=== PATIENT | male | born 1970 | race Caucasian/White ===

== ENCOUNTER → 2017-02-15 | Outpatient (CLI) | payer BC, MEDICARE ==
[~2017-02-15] MED LIST: ACET-2321 PO; ASPI81TA2 PO; CLIN300C86 PO; INSU100V SQ; INSU100V8 SQ; LISI10TA7 PO; METF500T4 PO
== END ==
LOC: NWCC 07:59
PROVIDERS: ATTEND Internal Medicine
DX: E11.621 Type 2 diabetes mellitus with foot ulcer (principal); L97.512 Non-pressure chronic ulcer of other part of right foot with fat layer exposed; E11.40 Type 2 diabetes mellitus with diabetic neuropathy, unspecified; G60.9 Hereditary and idiopathic neuropathy, unspecified; B36.9 Superficial mycosis, unspecified; Z79.2 Long term (current) use of antibiotics; B96.89 Other specified bacterial agents as the cause of diseases classified elsewhere; I67.9 Cerebrovascular disease, unspecified; E78.00 Pure hypercholesterolemia, unspecified; R06.89 Other abnormalities of breathing; I48.91 Unspecified atrial fibrillation; I49.9 Cardiac arrhythmia, unspecified; J44.9 Chronic obstructive pulmonary disease, unspecified
CPT/HCPCS: 11042; 87070; 87075; 87077; 87181; 87184; 87186; 87205; A6209; G0463

== ENCOUNTER → 2017-02-22 | Outpatient (CLI) | payer MEDICARE ==
[~2017-02-22] MED LIST changes: +CALMOSEPTINE OINTMENT 3.5 G PACKET TOP ONE
== END ==
LOC: NWCC 09:56
PROVIDERS: ATTEND Internal Medicine
DX: E11.621 Type 2 diabetes mellitus with foot ulcer (principal); L97.512 Non-pressure chronic ulcer of other part of right foot with fat layer exposed
CPT/HCPCS: 11042; A6209; A6210; A9270

== ENCOUNTER → 2017-03-08 | Outpatient (CLI) | payer MEDICARE ==
[~2017-03-08] MED LIST changes: +SALINE FLUSH 10ml SYRINGE IVF ONE
== END ==
LOC: NWCC 09:26
PROVIDERS: ATTEND Internal Medicine
DX: E11.621 Type 2 diabetes mellitus with foot ulcer (principal); L97.512 Non-pressure chronic ulcer of other part of right foot with fat layer exposed; Z79.2 Long term (current) use of antibiotics
CPT/HCPCS: 11042; A6209; A9270

== ENCOUNTER → 2017-03-22 | Outpatient (CLI) | payer MEDICARE | LOC: NWCC 09:27 | PROVIDERS: ATTEND Internal Medicine | DX: E11.621 Type 2 diabetes mellitus with foot ulcer (principal); L97.512 Non-pressure chronic ulcer of other part of right foot with fat layer exposed; B96.89 Other specified bacterial agents as the cause of diseases classified elsewhere; Z79.2 Long term (current) use of antibiotics | CPT/HCPCS: 11042; 87070; 87075; 87077; 87147; 87186; 87205; A6209; A6210; A9270 ==

== ENCOUNTER 2017-07-18 12:49 | Inpatient (IN) ==
[2017-07-18] MEDS ORDERED: NS 1,000 ML IV ONE (13:54)
--- NOTE | 2017-07-18 13:54 | Emergency Department Report ---
Wound/Laceration HPI - General Chief Complaint: Wound/Laceration Stated Complaint: big toe bleeding,infection,sent from wound clinic Time Seen by Provider: 07/18/17 13:53 Source: patient Mode of arrival: ambulatory Limitations: no limitations - History of Present Illness HPI narrative: Patient is a 46-year-old male, diabetic with diabetic neuropathy and poor foot hygiene. Patient has been followed in the wound care center for his feet in the past, which she Dr. Beasley today, noted to have increased redness and discharge of the right great toe. Patient was referred to the ER for evaluation possible admission - Related Data Home Medications Medication Instructions Recorded Confirmed Aspirin [[place] Aspirin] 81 mg PO DAILY 07/18/17 07/18/17 Previous Rx's Medication Instructions Recorded Acetaminophen [Tylenol] 325 - 650 mg PO Q5H PRN #60 tab 05/26/16 Acidoph/L.bulg/Bif.b/S.thermop 2 cap PO BIDWM #60 tab 07/22/17 [Bacid Caplet] Clindamycin [Cleocin] 300 mg PO QID #56 cap 07/22/17 Loperamide [Imodium] 2 mg PO PRN PRN #15 cap 07/22/17 Metoclopramide [Reglan] 10 mg PO ACHS #20 tab 07/22/17 Glucophage (metformin) 500 mg 1,000 mg PO BID #360 tab 09/03/17 tablet Levemir (insulin detemir) 100 27 unit SQ .QHS #10 ml 09/03/17 unit/mL Lipitor (atorvastatin) 10 mg tablet 10 mg PO .qhs #90 tab 09/03/17 lisinopril 10 mg tablet 10 mg PO DAILY #90 tab 09/03/17 Humalog KwikPen (insulin lispro) 15 unit SQ .COMPLEX #3 ml 09/06/17 100 unit/mL SQ PEN Levemir FlexTouch (insulin 27 unit SQ .QHS #10 ml 09/06/17 detemir) 100 unit/mL (3 mL) PEN insulin needles See Label Instructions .ROUTE 09/06/17 .COMPLEX #100 each Allergies Allergy/AdvReac Type Severity Reaction Status Date / Time No Known Allergies Allergy Verified 08/15/17 12:58 Review of Systems Constitutional: Denies: fever, chills, weakness Eyes: Denies: eye pain, eye discharge ENT: Denies: throat pain, dental pain Cardiovascular: Denies: chest pain, palpitations Gastrointestinal: Denies: abdominal pain, nausea, vomiting Neurological: Denies: headache, weakness, numbness Psychiatric: Denies: anxiety, depression Endocrine: Denies: fatigue, heat or cold intolerance Past Medical History - Past Medical History Medical history: Reports: CHF, COPD, diabetes, hyperlipidemia, other (obesity) Physical Exam - General Limitations: no limitations General appearance: alert, in no apparent distress - Chest Chest inspection: Present: symmetric chest wall rise. Absent: tenderness - Respiratory Respiratory exam: Present: normal lung sounds bilaterally. Absent: respiratory distress, wheezes, stridor - Cardiovascular Cardiovascular exam: Present: regular rate, normal rhythm, normal heart sounds - Abdominal Exam Abdominal exam: Present: soft, normal bowel sounds. Absent: distention, tenderness - Extremities Exam Extremities exam: Present: full ROM, normal capillary refill, other (patient does have large wound on the right great toe with surrounding erythema and discharge). Absent: tenderness - Neurological Exam Neurological exam: Present: alert, oriented X3 - Psychiatric Psychiatric exam: Present: normal affect, normal mood Course Vital Signs Temperature 98.6 F 07/18/17 12:56 Pulse Rate 74 07/18/17 12:56 Respiratory Rate 18 07/18/17 12:56 Blood Pressure 133/73 07/18/17 12:56 Pulse Oximetry 96 07/18/17 12:56 Temperature 97.3 F 07/22/17 12:26 Pulse Rate 89 07/22/17 12:26 Respiratory Rate 18 07/22/17 12:26 Blood Pressure 144/84 H 07/22/17 12:26 Pulse Oximetry 97 07/22/17 12:26 Wound/Laceration - [facility] Narrative Medical decision making narrative: Discuss case with Dr. De La Paz, will admit to the hospitalist service - Differential Diagnosis Differential diagnosis: Likely: abscess (cellulitis, sepsis, diabetic foot ulcer , osteomyelitis) - Medical Records Attestation: I reviewed the patient's medical records. - Lab Data Attestation: I reviewed the patient's lab results. Result diagrams: 07/22/17 04:19 07/22/17 04:19 Lab Results 07/18/17 07/18/17 07/18/17 Range/Units 14:22 14:22 14:22 WBC 15.1 H (4.5-11.0) T/MM3 RBC 4.84 (4.50-5.90) M/MM3 Hgb 13.0 L (13.5-17.5) GM/DL Hct 39.3 L (41-53) % MCV 81.2 (80-100) UM3 MCH 26.9 (26-34) UUG MCHC 33.1 (31-37) GM/DL RDW Std Deviation 38.2 (36.9-50.2) FL Plt Count 357 (130-400) T/MM3 MPV 8.9 L (9.4-12.4) UM3 Immature Gran % (Auto) Not performed Neut % (Auto) Not performed Lymph % (Auto) Not performed [place] % (Auto) Not performed Eos % (Auto) Not performed Baso % (Auto) Not performed Neut # Not performed Lymph # Not performed [place] # Not performed Eos # Not performed Baso # Not performed Abs Immat Gran (auto) Not performed Neutrophils % (Manual) 82.0 H (33-66) % Lymphocytes % (Manual) 18.0 L (23-45) % Neutrophils # (Manual) 12.4 H (1.8-7.7) T/MM3 Lymphocytes # (Manual) 2.7 (1-4.8) T/MM3 RBC Morph Comment Normal Turbidity < 20 (0-20) Sodium 138 (134-144) MEQ/L Potassium 4.0 (3.6-5) MEQ/L Chloride 100 (98-107) MEQ/L Carbon Dioxide 27 (22-30) MEQ/L Anion Gap 11 (5-15) MEQ/L BUN 10.0 (9-20) MG/DL Creatinine 0.4 L (0.8-1.5) MG/DL GFR Calculation 230 BUN/Creatinine Ratio 25 (6-26) RATIO Glucose 232 H (75-110) MG/DL Calculated Osmolality 272 (261-280) MOSM/KG Calcium 9.2 (8.4-10.2) MG/DL Total Bilirubin 0.80 (0.20-1.30) MG/DL Icterus Index < 2 (0-7) AST 22 (17-59) U/L ALT 35 (21-72) U/L Alkaline Phosphatase 34 L (38-126) U/L Total Protein 8.0 (6.3-8.2) G/DL Albumin 4.1 (3.5-5.0) G/DL Globulin 3.9 H (2.4-3.6) G/DL Albumin/Globulin Ratio 1.1 (1.1-2.2) RATIO Plasma Lactate 1.2 (0.6-2.2) MMOL/L Procalcitonin < 0.05 NG/ML Specimen Hemolysis 47 H (0-25) Disposition Clinical Impression: Cellulitis of great toe, right Disposition: 02 To [facility] [place] Care Condition: Stable - Seen By: physician
[2017-07-18] MEDS ORDERED: CEFEPIME 1 GM in NS 100 ML IV ONE (13:55)
[2017-07-18 16:00] VITALS: BMI 42.7
--- NOTE | 2017-07-18 17:02 | History & Physical Report ---
<Belinda Amaya - Last Filed: 07/18/17 17:44> History of Present Illness Date: 07/18/17 Chief complaint: worsening diabetic foot wound HPI: Patient is 46-year-old male who presents to the emergency room with worsening of his diabetic foot wound. He has been seeing Dr. Harpal Eldridge weekly in the wound clinic. He states he saw her 2 days ago and she started him on Levaquin due to concern for infection. Culture was taken at the previous visit and results are pending. He had a previous culture in April which grew out staph aureus-MRSA and group B strep. He states the wound has continued to worsen with a new blood blister and pus drainage noted this morning. He has had some pain ( usually doesn't have much pain/sensation d/t diabetic neuropathy) and reports chills. He reported this to the wound clinic and they recommended he go to the emergency room today. His white count in ER was 15.1, (up from 11.7 two days ago ) lactate 1.2, procalcitonin< 0.05. He already has an MRI scheduled for today to evaluate the right great toe due to the nonhealing wound. Patient was seen in his hospital room with his son present. He was resting comfortably. He states overall he is feeling fine, but knew he needed to come in because of his worsening toe symptoms. His vital signs in the emergency room were all stable. He is afebrile. He reports his last A1c in February was 8. In addition to routine visits to wound clinic, patient has seen Dr. Odell for this wound in April 2016. Review of Systems Comprehensive ROS: completed and no additional positive findings except those as stated - Cardiovascular Cardiovascular: Present: dyspnea on exertion (chronic for patient ) - Integumentary/Breasts Integumentary: Present: as per HPI PFSH Past Medical History Chronic respiratory insufficiency-wears O2 continuously at 3 L per nasal cannula Type 2 diabetes Diabetic neuropathy Hypercholesterolemia Episodic atrial fibrillation Obesity Hypoventilation syndrome Cerebrovascular disease-patient reports he had 4 "small strokes" when he was having issues with atrial fibrillation History of treatment for tuberculosis per patient-2013 Surgical History: Pilonidal cystectomy. Left carpal tunnel release. Facial reconstruction with plastic plating - facial fractures related to football injury. Heart cath 06/06-normal (doesn't follow with cardiology) Family History: Father- age 56. Malignant melanoma with metastases to brain, diabetes, renal failure Maternal and paternal grandfathers-diabetes Mother-emphysema - Social History Smoking status: Never smoker Substance use type: does not use Alcohol intake frequency: a few times a month (1-2 beers) Housing: house Household members: spouse, children (son ) Current occupational status: disabled (2013-Due To Hypoxia) Social history: PCP-[facility]RIST[facility] Tom/Dr. Garg Medications Home Medications Medication Instructions Recorded Confirmed Type Metformin HCl 1,000 mg PO BIDWM #0 tab 05/23/16 07/18/17 History Insulin Aspart [Novolog Flexpen] 15 unit SQ TIDWM 07/18/17 07/18/17 History Lisinopril 10 mg PO DAILY 07/18/17 07/18/17 History levoFLOXacin [Levofloxacin] 750 mg PO DAILY 07/18/17 07/18/17 History Allergies Allergy/AdvReac Type Severity Reaction Status Date / Time No Known Allergies Allergy Verified 07/18/17 13:55 Exam Vital Signs: Temperature 96.7 F L 07/18/17 15:48 Pulse Rate 82 07/18/17 15:48 Respiratory Rate 18 07/18/17 15:48 Blood Pressure 131/78 07/18/17 15:48 Pulse Oximetry 98 07/18/17 15:48 Oxygen Delivery Method Nasal Cannula Oxygen Flow Rate 3 Height/Weight/BMI: Height 1.65 m Weight 116.5 kg Body Mass Index 42.7 - Constitutional Present: no acute distress, well nourished, well developed, morbidly obese - Routine HEENT Exam Head: Present: normocephalic, atraumatic Eye: Present: EOMI, PERRL ENT: Present: mucous membranes moist, oropharynx clear - Routine Neck Exam Present: supple, full ROM - Routine Respiratory Exam Present: CTA bilaterally. Absent: wheezes - Routine Cardiovascular Exam Present: RRR, S1, S2. Absent: murmur - Routine Abdominal Exam Present: soft, normoactive bowel sounds, non distended. Absent: tenderness - Routine Extremities Exam Present: no edema ( 1+), normal capillary refill Comments: Pedal pulses palpable bilaterally - Routine Skin Exam Present: dry, warm, wounds (ulceration on plantar surface of right great toe. Some Callus formation. Erythema and swelling of the toe. New open area on the dorsal surface of the great toe, approximately a centimeter in diameter. Mild bleeding at this time. Patient has no pain with palpation due to his neuropathy. ) - Routine Neurological Exam Present: alert, oriented X3, moving all extremities, normal tone Cranial nerves III through XII grossly intact - Routine Psychiatric Exam Present: normal affect, normal thought process Comments: No feeling to soft touch in the toes, limited feeling in the feet. Results - Labs CBC & Chem 7: 07/18/17 14:22 07/18/17 14:22 Labs: Laboratory Results - last 24 hr 07/18/17 07/18/17 07/18/17 14:22 14:22 14:22 WBC 15.1 H RBC 4.84 Hgb 13.0 L Hct 39.3 L MCV 81.2 MCH 26.9 MCHC 33.1 RDW Std Deviation 38.2 Plt Count 357 MPV 8.9 L Immature Gran % (Auto) Not performed Neut % (Auto) Not performed Lymph % (Auto) Not performed [place] % (Auto) Not performed Eos % (Auto) Not performed Baso % (Auto) Not performed Neut # Not performed Lymph # Not performed [place] # Not performed Eos # Not performed Baso # Not performed Abs Immat Gran (auto) Not performed Neutrophils % (Manual) 82.0 H Lymphocytes % (Manual) 18.0 L Neutrophils # (Manual) 12.4 H Lymphocytes # (Manual) 2.7 RBC Morph Comment Normal Turbidity < 20 Sodium 138 Potassium 4.0 Chloride 100 Carbon Dioxide 27 Anion Gap 11 BUN 10.0 Creatinine 0.4 L GFR Calculation 230 BUN/Creatinine Ratio 25 Glucose 232 H Calculated Osmolality 272 Calcium 9.2 Total Bilirubin 0.80 Icterus Index < 2 AST 22 ALT 35 Alkaline Phosphatase 34 L Total Protein 8.0 Albumin 4.1 Globulin 3.9 H Albumin/Globulin Ratio 1.1 Plasma Lactate 1.2 Procalcitonin < 0.05 Specimen Hemolysis 47 H Assessment and Plan Assessment and Plan: Impression: Chronic diabetic toe ulcer with cellulitis/abscess-right great toe. Rule out osteomyelitis Chronic respiratory insufficiency-wears O2 continuously at 3 L per nasal cannula Type 2 diabetes Diabetic neuropathy Hypercholesterolemia Episodic atrial fibrillation Obesity Hypoventilation syndrome Cerebrovascular disease-patient reports he had 4 "small strokes" when he was having issues with atrial fibrillation History of treatment for tuberculosis per patient-2013 Plan: Admit patient to inpatient hospital care under the care of the hospitalist team , attending Dr. De La Paz. Expect patient to have greater than 2 overnight stay based on his failed outpatient treatment of infected, chronic diabetic foot wound. Start antibiotics for coverage of infected diabetic foot ulcer. (Culture of wound taken 2 days ago is pending.) Pharmacy consult to manage vancomycin dosing. Zosyn 3.375 g every 6 hours IV. MRI of foot as already scheduled Continue home insulin and metformin for diabetes. Accu-Cheks 4 times a day. Carb controlled diet. Telemetry given his history of episodic atrial fibrillation. Lovenox will be initiated for VTE prophylaxis Continue 3 L O2 per nasal cannula as is this patient's home oxygen requirement. BiPAP with 3 L O2 overnight Hemoglobin A1c, TSH, CRP and urinalysis for laboratory completeness given his diabetes diagnosis Patient is a full code. Following patient's discharge, his care will return to his PCP, Mikaela Shaikh APRN Sepsis Assessment - Evaluation Sepsis screening result: Sepsis Risk Hospital Course Summary Disclaimer: The visit summary below is not to be considered part of the above Progress Note. <Camille De La Paz - Last Filed: 07/18/17 18:52> History of Present Illness Date: 07/18/17 Exam Vital Signs: Temperature 96.7 F L 07/18/17 15:48 Pulse Rate 82 07/18/17 15:48 Respiratory Rate 18 07/18/17 15:48 Blood Pressure 131/78 07/18/17 15:48 Pulse Oximetry 98 07/18/17 15:48 Results - Labs CBC & Chem 7: 07/18/17 14:22 07/18/17 14:22 Assessment and Plan DVT Prophylaxis: SCD's Resuscitation Status: Full Code Assessment and Plan: I have independently evaluated and examined this patient. I reviewed the chart, the patient's history, and the TERMINAL WORKER/PA's documented findings as above. We discussed and formulated the assessment and plan as above with additions as below: Mr. Ruiz reports a history of a ulcer on the plantar surface of his right great toe since approximately February of this year. He previously had an ulcer in this area which had healed. Since February has been managed at the wound care clinic under the care Dr. Eldridge. Couple of days ago patient developed increasing discoloration and swelling of the great toe with fevers. Levaquin was started 2 days ago at which time sedimentation rate was 41, CRP 44.3, and white count 11.7. Fevers persist with development of a necrotic area on the dorsal surface of the right great toe which was opened in the emergency room and drained of approximately 1 mL of pus. Gram stain is pending as is culture. Recent cultures are as previously noted with staph aureus and group B strep cultured 07/16. The patient is admitted for further management due to worsening of symptoms and development of localized abscess, failure of outpatient therapy , and high likelihood of osteomyelitis. It is anticipated that he will require greater than 2 days of IV antibiotics and possible surgical intervention. On examination the patient is alert and cooperative. Respirations are nonlabored and he was on room air at the time of my assessment. Lungs were clear. Cardiac rhythm regular Right foot demonstrated erythema involving all 5 digits and extending to the MTP joints; the right great toe was edematous and there is a 1 cm punched out ulcer on the plantar surface and a superficial surgically induced ulceration on the dorsal surface following debridement in the ER. The distal foot/toes are warm to palpation but nontender due to the patient's neuropathy and lack of sensation distally. White count is increased 15.1. MRI pending. Antibiotics converted to vancomycin with Zosyn for standard diabetic foot coverage pending further culture data. It is noted patient is previously cultured MRSA from the right great toe in April of this year. He additionally has cultured anaerobic gram-negative rods hence Zosyn will be utilized in place of Levaquin. High risk for further complications due to recurrent ulceration of the right great toe. Discussed with Dr. Espinosa, outpatient records reviewed, prior microbiology results reviewed, laboratory data reviewed. Hospital Course Summary Disclaimer: The visit summary below is not to be considered part of the above Progress Note.
[2017-07-18] MEDS ORDERED: ACETAMINOPHEN 325 MG TABLET PO PRN (17:41)
[2017-07-18] MEDS ORDERED: GADOBUTROL 10mMol/10ml INJECTION IVP ONE (18:11)
[2017-07-18] MEDS ORDERED: SALINE FLUSH 10ml SYRINGE ONE (18:12)
--- NOTE | 2017-07-18 18:24 | Pharmacy Consult-Antibiotics ---
Pharmacy Consult-Vancomycin - Laboratory Information WBC 15.1 T/MM3 (4.5-11.0) H 07/18/17 14:22 BUN 10.0 MG/DL (9-20) 07/18/17 14:22 Creatinine 0.4 MG/DL (0.8-1.5) L 07/18/17 14:22 Procalcitonin < 0.05 NG/ML 07/18/17 14:22 46yo M admitted with sepsis secondary to 2 Rt Great Toe diabetic wound, possible osteomyelitis Starting Vanco + Zosyn Will start Vancomycin @ 1500mg IV q8hrs. Target trough range = 15-20 mcg/ml Thank you
[2017-07-18] MEDS: PIPERACILLIN/TAZOBACTAM 3.375 GM in NS 100 ML IV SCH (18:55)
[2017-07-18] MEDS ORDERED: NS FLUSH BAG 500ml IV PRN (18:56)
[2017-07-18] MEDS: ENOXAPARIN 30 MG/0.3 ML INJECTION SQ SCH (18:56)
[2017-07-18] MEDS: INSULIN ASPART 100unit/ml INJECTION SQ SCH (20:09)
[2017-07-18] MEDS: INSULIN DETEMIR 100unit/ml INJECTION SQ SCH (22:08)
[2017-07-18] MEDS: ATORVASTATIN 10 MG TABLET PO SCH (22:36)
[2017-07-19] MEDS: PIPERACILLIN/TAZOBACTAM 3.375 GM in NS 100 ML IV SCH ×4 (02:51→20:05)
[2017-07-19] MEDS ORDERED: NS 500 ML IV ONE (03:18)
[2017-07-19] MEDS: INSULIN ASPART 100unit/ml INJECTION SQ SCH ×3 (08:41→17:37)
[2017-07-19] MEDS: METFORMIN 500 MG TABLET PO SCH ×2 (08:42→17:33)
[2017-07-19] MEDS: LISINOPRIL 10 MG TABLET PO SCH (08:42)
[2017-07-19] MEDS: ENOXAPARIN 30 MG/0.3 ML INJECTION SQ SCH (08:42)
[2017-07-19] MEDS: ASPIRIN *EC* 81 MG TABLET PO SCH (08:43)
--- NOTE | 2017-07-19 08:56 | Magnetic Resonance Report ---
Indication: diabetic foot wound PROCEDURE: MR foot RT wo/w con: Encounter: Initial Comparison: Foot MRI dated June 29, 2016 Technique: Multiplanar multisequence MR imaging of the right foot was performed with and without contrast. Contrast: 10 mL Gadavist Findings: There is continued diffuse T1 hypointensity and T2 hyperintensity throughout the great toe distal phalanx. There is worsening T2 hyperintensity and enhancement within the great toe proximal phalanx compared to the prior study. There is degenerative edema within the navicular bone which is slightly worsened from the prior study. The remaining bone marrow signal intensity is normal. Postcontrast images show a rim-enhancing fluid collection probably representing abscess facial to the dorsal aspect of the great toe interphalangeal joint. This is best appreciated on coronal T1 postcontrast image #11 measuring 2.6 x 2 cm in size. This is approximately 0.4 cm in thickness. There is edema within the intrinsic foot musculature, a common finding in diabetics. The foot flexor and extensor tendons are grossly intact. Impression: Continued osteomyelitis of the great toe with complete involvement of the distal phalanx and worsening involvement of the proximal phalanx. Dorsal subcutaneous abscess centered around the interphalangeal joint of the toe measuring 2.6 x 2 cm. .
--- NOTE | 2017-07-19 11:49 | Progress Note ---
<Mone Hernandez V - Last Filed: 07/19/17 11:43> Subjective: Trista is seen today in follow up. He is resting in bed without complaints. Reports that he has very minimal sensation/pain to the right great toe area. Dressing is intact with some minimal drainage. He remains afebrile, vital signs currently are normal. He did have some mild orthostatic stasis overnight systolic BP 90's however, this has resolved this morning. He is chronically on his 3 liters of oxygen by nasal cannula. Objective Vital signs: Temperature 99.4 F 07/19/17 08:24 Pulse Rate 88 07/19/17 08:24 Respiratory Rate 16 07/19/17 08:24 Blood Pressure 131/88 07/19/17 08:24 Pulse Oximetry 99 07/19/17 08:24 Oxygen Delivery Method Nasal Cannula Oxygen Flow Rate 3 Height/Weight/BMI: Weight 119.7 kg - Constitutional Present: well nourished, well developed - Routine HEENT Exam Eye: Present: EOMI ENT: Present: mucous membranes moist, dentition normal - Routine Respiratory Exam Present: CTA bilaterally. Absent: wheezes - Routine Cardiovascular Exam Present: RRR. Absent: murmur - Routine Abdominal Exam Present: soft, normoactive bowel sounds, non distended. Absent: tenderness - Routine Extremities Exam Present: normal capillary refill - Routine Skin Exam Present: dry, warm - Routine Neurological Exam Present: alert, oriented X3, CN II-XII intact - Routine Lymphatic Exam Lymphatic: Absent: adenopathy - Routine Psychiatric Exam Present: normal affect Results - Labs CBC & Chem 7: 07/19/17 04:01 07/19/17 04:01 Assessment and Plan (1) Cellulitis of great toe, right Current visit: Yes Status: Acute (2) Osteomyelitis of toe of right foot Current visit: Yes Status: Acute Assessment and Plan: Impression Osteomyelitis of right great toe Uncontrolled diabetes Chronic oxygen dependence Diabetic neuropathy Episodic atrial fibrillation Hypercholesterolemia Hypoventilation syndrome Plan Unfortunately, MRI of the right foot does reveal osteomyelitis of the right great toe with complete involvement of the distal phalanx and worsening involvement in the proximal. There is questionable about of dorsal subcutaneous abscess. Will contact Dr Diaz. Will place consultation with Dr Odell for evaluation and recommendations. Patient continues to be on IV vancomycin and Zosyn for antimicrobial coverage. Preliminary blood cultures remain negative. Superficial wound culture reveals gram-positive cocci. Leukocytosis improved, WBC 11.6 today. Will given one time dose of Potassium for oral supplementation given mild hypokalemia Hemoglobin A1c on admission was found to be significantly elevated at 11.5. Currently on metformin 1000 twice a day, Levemir 27 units at at bedtime along with NovoLog 15 units with meals 3 times a day. Continue to monitor blood pressure in light of reported hypotension overnight suspect this may positional. Continues on Lisinopril 10 mg daily. Continue Lovenox subcutaneous daily for DVT prophylaxis Sepsis Assessment - Evaluation Sepsis screening result: No Definite Risk Hospital Course Summary Disclaimer: The visit summary below is not to be considered part of the above Progress Note. Hospital Course: 07/19/17 Plan Unfortunately, MRI of the right foot does reveal osteomyelitis of the right great toe with complete involvement of the distal phalanx and worsening involvement in the proximal. There is questionable about of dorsal subcutaneous abscess. Will contact Dr Diaz. Will place consultation with Dr Odell for evaluation and recommendations. Patient continues to be on IV vancomycin and Zosyn for antimicrobial coverage. Preliminary blood cultures remain negative. Superficial wound culture reveals gram-positive cocci. Leukocytosis improved, WBC 11.6 today. Will given one time dose of Potassium for oral supplementation given mild hypokalemia Hemoglobin A1c on admission was found to be significantly elevated at 11.5. Currently on metformin 1000 twice a day, Levemir 27 units at at bedtime along with NovoLog 15 units with meals 3 times a day. Continue to monitor blood pressure in light of reported hypotension overnight suspect this may positional. Continues on Lisinopril 10 mg daily. Continue Lovenox subcutaneous daily for DVT prophylaxis <Camille De La Paz - Last Filed: 07/19/17 19:55> Objective Vital signs: Temperature 98.1 F 07/19/17 16:00 Pulse Rate 105 H 07/19/17 16:00 Respiratory Rate 20 07/19/17 16:00 Blood Pressure 146/85 H 07/19/17 16:00 Pulse Oximetry 99 07/19/17 16:00 Oxygen Delivery Method Nasal Cannula Oxygen Flow Rate 3 Height/Weight/BMI: Weight 119.7 kg Results - Labs CBC & Chem 7: 07/19/17 04:01 07/19/17 04:01 Assessment and Plan (1) Cellulitis of great toe, right Current visit: Yes Status: Acute (2) Osteomyelitis of toe of right foot Current visit: Yes Status: Acute Assessment and Plan: I have independently evaluated and examined this patient. I reviewed the chart, the patient's history, and the [employer]/PA's documented findings as above. We discussed and formulated the assessment and plan as above with additions as below: Trista reported no pain in his foot when seen earlier today. He had no fever overnight. Results of MRI were reviewed with him and he is aware that case is being reviewed with both orthopedic surgery and infectious disease (although Dr. Diaz is unavailable to see him in consultation at the hospital today). He described chronic exertional dyspnea unchanged from baseline requiring 3 L supplemental oxygen at all times. Right foot is dressed time my evaluation, the dressing is dry currently-not removed and will defer direct exam to ortho. NAD, alert, respirations nonlabored, abdomen benign Leukocytosis improving on Zosyn/vancomycin. CRP 81.4-has nearly doubled in the last 3 days. Culture pending but Gram stain with gram-positive's in chains, gram variable rods. Wound culture from 07/16 with group B strep and MRSA. MRI reviewed by myself-osteomyelitis right great toe with 2 cm abscess on the dorsal surface overlying the interphalangeal joint of the great toe. Discussed with both Dr. Odell and Dr. Diaz-continue current antibiotics pending further culture information. Anticipate probable amputation or debridement and bone biopsy at a minimum tomorrow. Potassium borderline-oral supplementation tonight. Hospital Course Summary Disclaimer: The visit summary below is not to be considered part of the above Progress Note.
--- NOTE | 2017-07-19 13:25 | Orthopedic Consult Note ---
Orthopedic Consultation HPI - Consultation Info Consult Date: 07/19/17 Attending Physician: Camille De La Paz MD Consult Reason: other - History of Present Illness Mr. Ruiz is a kind 46-year-old gentleman who I know from previous diabetic foot ulcerations on the same right great toe about a year ago. At that time and that healing up his wounds but unfortunately he notices it opened up again in February and has been treated at the wound center periodically since February. They were planning on possibly getting him into the HBO chamber next week when it and it was noted he had a large expression of pus from a superior ulcer over the great toe and he was admitted yesterday to the hospitalist service. He denies any real pain to the neuropathy. Review of Systems - Constitutional Constitutional: Absent: chills, fever(s), night sweats - Cardiovascular Cardiovascular: Absent: chest pain, palpitations - Respiratory Respiratory: Absent: cough, dyspnea - Gastrointestinal Gastrointestinal: Absent: abdominal pain, nausea, vomiting - Musculoskeletal Musculoskeletal: Present: as per HPI - Integumentary/Breasts Integumentary: Present: rash - Neurological Neurological: Present: numbness. Absent: tingling [facility] Surgical History: Pilonidal cystectomy. Left carpal tunnel release. Facial reconstruction with plastic plating - facial fractures related to football injury. Heart cath 06/06-normal (doesn't follow with cardiology) - Social History Smoking status: Never smoker Medications Home Medications Medication Instructions Recorded Confirmed Type Metformin HCl 1,000 mg PO BIDWM #0 tab 05/23/16 07/18/17 History Aspirin [[place] Aspirin] 81 mg PO DAILY 07/18/17 07/18/17 History Atorvastatin [Lipitor] 1 tab PO HS 07/18/17 07/18/17 History Insulin Aspart [Novolog Flexpen] 15 unit SQ TIDWM 07/18/17 07/18/17 History Levemir 27 units SUB-Q HS 07/18/17 07/18/17 History Lisinopril 10 mg PO DAILY 07/18/17 07/18/17 History levoFLOXacin [Levofloxacin] 750 mg PO DAILY 07/18/17 07/18/17 History Allergies Allergy/AdvReac Type Severity Reaction Status Date / Time No Known Allergies Allergy Verified 07/18/17 13:55 Orthopedic Exam Vital signs: Temperature 99.4 F 07/19/17 08:24 Pulse Rate 88 07/19/17 08:24 Respiratory Rate 16 07/19/17 08:24 Blood Pressure 131/88 07/19/17 08:24 Pulse Oximetry 99 07/19/17 08:24 Oxygen Delivery Method Nasal Cannula Oxygen Flow Rate 3 - Constitutional General Appearance: Present: no acute distress, well developed, well nourished - Respiratory Exam Present: other (nasal cannula in place) - Cardiovascular Exam Capillary Refill: < 2-3 Seconds - Extremities Exam Comments: Right great toe with large ulcer both dorsally and plantarly at the level of the IP joint. The great toe is red and swollen. - Integumentary Exam Present: pink, warm, dry - Lymphatic Lymphatic: Absent: adenopathy - Neurological Exam Present: intact to light touch, no deficits - Psychiatric Exam Present: alert, normal affect - Labs Result Diagrams: 07/19/17 04:01 07/19/17 04:01 Abnormal lab results 07/19/17 07/19/17 Range/Units 04:01 04:01 WBC 11.6 H (4.5-11.0) T/MM3 RBC 4.36 L (4.50-5.90) M/MM3 Hgb 11.8 L (13.5-17.5) GM/DL Hct 36.2 L (41-53) % MPV 9.0 L (9.4-12.4) UM3 Neut % (Auto) 68.9 H (33-66) % Lymph % (Auto) 18.4 L (23-45) % Bremer % (Auto) 9.7 H (0-9.0) % Neut # 8.0 H (1.8-7.7) T/MM3 Bremer # 1.1 H (0-0.8) T/MM3 Abs Immat Gran (auto) 0.04 H (0.00-0.03) T/MM3 Potassium 3.5 L (3.6-5) MEQ/L Creatinine 0.6 L D (0.8-1.5) MG/DL Glucose 151 H (75-110) MG/DL Hemoglobin A1c 11.5 H (6.1-7.9) % C-Reactive Protein 81.4 H (0-9) MG/L H & H 07/19/17 Range/Units 04:01 Hgb 11.8 L (13.5-17.5) GM/DL Hct 36.2 L (41-53) % Impression and Recommendation (1) Osteomyelitis of toe of right foot Current visit: Yes Status: Acute I reviewed the diagnosis as well as MRI findings with him. Because of the extensiveness of the osteomyelitis and large abscess in the toe and his current open ulcerations both superiorly and plantarly to the great toe I do not feel there is a good chance of saving this toe. Recommendation would be for amputation at the MTP joint of the great toe. I discussed being as aggressive as possible trying to save the toe which would likely require a bone biopsy several weeks of IV antibiotics and daily hyperbaric oxygen chamber treatment. This aggressive treatment would not guarantee that we could save the toe. He would like to think about his options and talk to his . I will go ahead and make him nothing by mouth at midnight and plan on surgery tomorrow which would be an amputation versus a debridement with bone biopsy. Hospital Course Summary Disclaimer: The visit summary below is not to be considered part of the above Progress Note. Hospital Course: 07/19/17 Plan Unfortunately, MRI of the right foot does reveal osteomyelitis of the right great toe with complete involvement of the distal phalanx and worsening involvement in the proximal. There is questionable about of dorsal subcutaneous abscess. Will contact Dr Diaz. Will place consultation with Dr Odell for evaluation and recommendations. Patient continues to be on IV vancomycin and Zosyn for antimicrobial coverage. Preliminary blood cultures remain negative. Superficial wound culture reveals gram-positive cocci. Leukocytosis improved, WBC 11.6 today. Will given one time dose of Potassium for oral supplementation given mild hypokalemia Hemoglobin A1c on admission was found to be significantly elevated at 11.5. Currently on metformin 1000 twice a day, Levemir 27 units at at bedtime along with NovoLog 15 units with meals 3 times a day. Continue to monitor blood pressure in light of reported hypotension overnight suspect this may positional. Continues on Lisinopril 10 mg daily. Continue Lovenox subcutaneous daily for DVT prophylaxis
[2017-07-19] MEDS ORDERED: PNEUMOCOCCAL 13 VACCINE 0.5ml INJECTION IM ONE (14:22)
[2017-07-19] MEDS ORDERED: PNEUMOCOCCAL VAC ADMIN CHARGE INJ ONE (17:33)
[2017-07-19] MEDS: ONDANSETRON 4 MG/2 ML INJECTION IVP PRN (18:45)
[2017-07-19] MEDS: INSULIN DETEMIR 100unit/ml INJECTION SQ SCH (20:47)
[2017-07-19] MEDS: ATORVASTATIN 10 MG TABLET PO SCH (20:48)
[2017-07-20] MEDS: PIPERACILLIN/TAZOBACTAM 3.375 GM in NS 100 ML IV SCH ×3 (02:42→17:47)
[2017-07-20] MEDS: SALINE FLUSH 10ml SYRINGE IVF PRN (02:43)
[2017-07-20] MEDS: ONDANSETRON 4 MG/2 ML INJECTION IVP PRN ×3 (03:27→17:24)
[2017-07-20] MEDS ORDERED: SCOPOLAMINE 1.5 MG PATCH TD SCH (08:15)
[2017-07-20] MEDS ORDERED: NS 1,000 ML IV SCH (09:00)
--- NOTE | 2017-07-20 09:05 | Anesthesia Preoperative Report ---
Anesthesia Preoperative Record - Date and Time Date: 07/20/17 Preoperative Diagnosis: Diabetic Foot Wound Proposed Procedure: right great toe amputation NPO Since Date: 07/19/17 NPO Since Time: 23:00 Allergies/Adverse Reactions: Allergies Allergy/AdvReac Type Severity Reaction Status Date / Time No Known Allergies Allergy Verified 07/18/17 13:55 - Vital Signs Vital Signs: Temperature 98.4 F 07/20/17 06:35 Pulse Rate 90 07/20/17 06:35 Respiratory Rate 16 07/20/17 06:35 Blood Pressure 149/78 H 07/20/17 06:35 Pulse Oximetry 96 07/20/17 06:35 Oxygen Delivery Method Nasal Cannula Oxygen Flow Rate 3 Height and Weight: Weight 119.7 kg - Medications Inpatient Medications: Current Medications Acetaminophen (Tylenol) 325 - 650 mg PO Q5H PRN PRN Reason: Discomfort Aspirin (Ecotrin) 81 mg PO DAILY [facility] Last Admin: 07/19/17 08:43 Dose: 81 mg Atorvastatin Calcium (Lipitor) 10 mg PO [facility] Last Admin: 07/19/17 20:48 Dose: 10 mg Enoxaparin Sodium (Lovenox) 30 mg SQ DAILY [facility] Last Admin: 07/19/17 08:42 Dose: 30 mg Piperacillin Sod/Tazobactam (Sod 3.375 gm/ Sodium Chloride) 100 mls @ 200 mls/ hr IV Q6HR [facility] Last Infusion: 07/20/17 03:32 Dose: Infused Vancomycin HCl 1,500 mg/ (Sodium Chloride) 500 mls @ 250 mls/hr IV 0700,1300, 2100 [facility] Last Admin: 07/20/17 06:09 Dose: 250 mls/hr Sodium Chloride (Normal Saline) 1,000 mls @ 50 mls/hr IV .Q20H [facility] Last Admin: 07/20/17 08:57 Dose: 50 mls/hr Insulin Aspart (Novolog) 15 unit SQ TIDWM [facility] Last Admin: 07/19/17 17:37 Dose: Not Given Insulin Detemir (Levemir) 27 unit SQ [facility] Last Admin: 07/19/17 20:47 Dose: 27 unit Lisinopril (Prinivil) 10 mg PO DAILY [facility] Last Admin: 07/19/17 08:42 Dose: 10 mg Metformin HCl (Glucophage) 1,000 mg PO BIDWM [facility] Last Admin: 07/19/17 17:33 Dose: 1,000 mg Ondansetron HCl (Zofran) 4 mg IVP Q6H PRN PRN Reason: Nausea &/or vomiting Last Admin: 07/20/17 03:27 Dose: 4 mg Scopolamine (Transderm-Scop Patch Removal) 1 removal TD O ONE Stop: 07/23/17 08:13 Sodium Chloride (Iv Flush) 10 - 80 ml IVF PRN PRN PRN Reason: Flushing Last Admin: 07/20/17 02:43 Dose: 20 ml Sodium Chloride (Normal Saline) 500 ml IV PRN PRN Home Medications: Home Medications Medication Instructions Recorded Confirmed Type Metformin HCl 1,000 mg PO BIDWM #0 tab 05/23/16 07/18/17 History Aspirin [[place] Aspirin] 81 mg PO DAILY 07/18/17 07/18/17 History Atorvastatin [Lipitor] 1 tab PO HS 07/18/17 07/18/17 History Insulin Aspart [Novolog Flexpen] 15 unit SQ TIDWM 07/18/17 07/18/17 History Levemir 27 units SUB-Q HS 07/18/17 07/18/17 History Lisinopril 10 mg PO DAILY 07/18/17 07/18/17 History levoFLOXacin [Levofloxacin] 750 mg PO DAILY 07/18/17 07/18/17 History Is Patient on Beta Familia?: No - Medical History Respiratory: Reports: Sleep Apnea (CPAP), Other (home O2 (2-3L at all times), lung injury with prolonged chemical exposure) Cardiovascular: Reports: Arrhythmia (Afib hx- ablation in 2009, no issues since) DENIES: Coronary Artery Disease (heart cath negative 2011), Hypertension ( lisinopril for renal protection), Myocardial Infarction Gastrointestional: Reports: Morbid Obesity DENIES: Gastroesophageal Reflux Disease Renal/Endocrine: Reports: Diabetes Mellitus Type 2 Other History: DENIES: Anesthesia Reactions (nausea with PO pain meds) - Surgical History HEENT Surgeries: Reports: Tonsillectomy Respiratory Surgery/Treatments: Reports: BiPAP Use, Oxygen Administration (2013) Anesthesia Reactions: None Hx Family Anesthesia Reaction: No History of Motion Sickness: No - Social History Smoking Status: Never smoker Hx Chewing Tobacco Use: No Second Hand Exposure: No Substance Use Type: does not use - Pertinent Findings Laboratory: CBC and BMP 08/25/17 04:09 07/20/17 04:10 BMP 07/20/17 04:10 Sodium 141 Potassium 3.9 Chloride 105 Carbon Dioxide 27 BUN 10.0 Creatinine 1.0 D Glucose 144 H Calcium 8.8 - Physical Exam Respiratory Exam: Present: lungs clear (slightly diminished) Cardiovascular Exam: Present: regular rate and rhythm - Airway Assessment Mallampati Score: II TMD: 3 Fingerbreadths Neck Extension: good Overall Assessment: may be difficult mask vent, may be difficult intubation, other (full casey) - ASA ASA Score: 3 - Plan Anesthesia: General TIVA, Local - Discussion Discussion: Discussed risks/options/alternatives of anesthesia and questions answered. Patient consents. Nursing pain assessment noted. Present for Discussion: spouse Attestation Statement: Prior to the delivery of any anesthetic medication, I examined the patient, developed the plan, obtained the patient's consent and discussed the risk and benefits of the procedure with the patient/guardian. - Additional Information Seen by Anesthesia: Yes
[2017-07-20] MEDS ORDERED: ACETAMINOPHEN IV 1,000 MG/100 ML VIAL IV ONE (09:11)
[2017-07-20] MEDS ORDERED: LIDOCAINE 1% (10mg/ml) 30ml SDV INJ ONE (09:40)
[2017-07-20] MEDS ORDERED: BUPIVACAINE 0.25% (2.5mg/ml) PF 30ml INJECTION ONE (09:40)
[2017-07-20] MEDS ORDERED: PROPOFOL 500 MG/50 ML VIAL IV ONE ×2 (09:59→10:12)
[2017-07-20] MEDS ORDERED: FentaNYL 100 MCG/2 ML INJECTION ONE (10:07)
[2017-07-20] MEDS ORDERED: PHENYLEPHRINE INJ 10 MG/ML VIAL IV ONE (10:24)
[2017-07-20] MEDS ORDERED: SALINE FLUSH 10ml SYRINGE ONE (10:24)
--- NOTE | 2017-07-20 10:43 | Operative Note ---
- Procedure Side: right Preoperative Diagnosis: other (right first toe osteomyelitis with diabetic foot ulcers) Postoperative Diagnosis: Same as preoperative diagnosis. Operation: other (right first toe amputation through the MTP joint) Surgeon: Terence Odell MD Complications: None. Anesthesia: General TIVA Estimated Blood Loss: See Anesthesia Record. Fluids: Please see Anesthesia Record. Description of Procedure: Mr. Ruiz and his right great toe were identified and marked in the preoperative holding area. He was brought back to the operating suite and placed supine on the operating table. He's placed and general anesthesia. The right lower extremity was prepped and draped in my normal sterile fashion. Timeout was performed. He had a large ulceration to the great toe both plantarly and superiorly. I lebron out my incision line to make a fishmouth type incision starting at the webspace between the first and second toe. I had to use a skin already up to the ulcerations both plantarly and dorsally to allow for enough skin for closure. Sharp incision was made down to bone along my incision line. The flexor and extensor tendons were transected as well as collateral ligaments at the MTP joint and the toe was removed in whole including the distal and proximal phalanx. During this dissection the was a copious amount of post type material that drained from the ulcer sites. I then assessed the remaining tissue do not see any obvious signs of necrotic tissue or deep infection. I milked the foot down to the wound did not express any fluid. The wound was then thoroughly irrigated using Irrecept irrigation. A total of 500 mL were used. All cautery was used at the skin edges to help obtain hemostasis. I then closed the incision using simple interrupted 3-0 nylon suture. A sterile dressing was placed and the patient was allowed to awake from general anesthesia he was placed into a postop shoe and he was taken back to the recovery room in the care of anesthesia.
--- NOTE | 2017-07-20 11:20 | Anesthesia Postoperative Note ---
- Date and Time Date: 07/20/17 Time: 11:20 - Status Patient Participated in Evaluation: Patient Participated in Person Vital Signs: Temperature 97.6 F 07/20/17 11:10 Pulse Rate 84 07/20/17 11:10 Respiratory Rate 20 07/20/17 11:10 Blood Pressure 125/72 07/20/17 11:10 Pulse Oximetry 95 07/20/17 11:10 Oxygen Delivery Method Nasal Cannula Oxygen Flow Rate 3 Respiratory Function: Airway Patent Cardiovascular Function: Regular Pulse EKG Rhythm: Normal Sinus Rhythm Mental Status: Alert and Oriented Pain Intensity: 0 Hydration: Taking PO Fluids Complications During Recover: None Apparent - Follow-Up Instructions Instructions: Per Surgeon
[2017-07-20] MEDS: INSULIN ASPART 100unit/ml INJECTION SQ SCH ×3 (11:50→18:46)
[2017-07-20] MEDS: ASPIRIN *EC* 81 MG TABLET PO SCH (12:10)
[2017-07-20] MEDS: METFORMIN 500 MG TABLET PO SCH ×2 (12:10→17:28)
[2017-07-20] MEDS: LISINOPRIL 10 MG TABLET PO SCH (12:15)
[2017-07-20] MEDS: ENOXAPARIN 30 MG/0.3 ML INJECTION SQ SCH (12:35)
--- NOTE | 2017-07-20 13:43 | Progress Note ---
<Mone Hernandez V - Last Filed: 07/20/17 13:39> Subjective: Trista is seen this afternoon following his dictation of the right great toe. His affect is somewhat flat/depressed. He states he has moderate amount of nausea that has been present for over 24 hours. He has not had much oral intake , he did have a boost last evening. He does verbalize that he feels he has a mild cough, however, does not have any shortness of breath or chest pain. Chronically on 3 liters of O2. Objective Vital signs: Temperature 95.6 F L 07/20/17 11:51 Pulse Rate 78 07/20/17 12:21 Respiratory Rate 18 07/20/17 12:21 Blood Pressure 165/93 H 07/20/17 12:21 Pulse Oximetry 98 07/20/17 12:21 Oxygen Delivery Method Nasal Cannula Oxygen Flow Rate 3 Height/Weight/BMI: Weight 121 kg - Constitutional Present: no acute distress, well nourished, well developed - Routine HEENT Exam Eye: Present: EOMI ENT: Present: mucous membranes moist, dentition normal - Routine Respiratory Exam Present: CTA bilaterally. Absent: wheezes - Routine Cardiovascular Exam Present: RRR, S1, S2. Absent: murmur - Routine Abdominal Exam Present: soft, normoactive bowel sounds, non distended. Absent: tenderness - Routine Extremities Exam Present: normal capillary refill - Routine Skin Exam Present: intact, dry, warm - Routine Neurological Exam Present: alert, oriented X3, CN II-XII intact - Routine Lymphatic Exam Lymphatic: Absent: adenopathy - Routine Psychiatric Exam Present: normal affect Comments: Flat affect Results - Labs CBC & Chem 7: 07/20/17 04:09 07/20/17 04:10 Assessment and Plan (1) Cellulitis of great toe, right Current visit: Yes Status: Acute (2) Osteomyelitis of toe of right foot Current visit: Yes Status: Acute Assessment and Plan: Impression Osteomyelitis of right great toe Uncontrolled diabetes Chronic oxygen dependence Diabetic neuropathy Episodic atrial fibrillation Hypercholesterolemia Hypoventilation syndrome Plan Trista's affect appears to be somewhat flat and he appears to be uncomfortable today although he is not really a complainer so does difficult to evaluate. Nausea seems to be his biggest issue. Discussed with him about using multiple antibiotics to attempt to treat his nausea. He is in agreement to try an intramuscular injection of Phenergan to see if that will be more aggressive treatment towards his nausea and He is in agreement to try this. He also has a scopolamine patch He is status post right great toe amputation done by Dr. Odell this morning. Denies significant pain. He complains of a cough today. Will obtain a Chest X-ray. Continues on chronic 3 liters of oxygen. Continue to monitor blood sugars. Continues on vancomycin and Zosyn for antimicrobial coverage. Will change patient's line to a PICC line today as he will likely need longer-term antibiotic coverage. Would like to speak with Dr. Diaz regarding treatment length recommendations. Continue with Lovenox subcutaneous daily starting tomorrow for DVT prophylaxis Discuss further orders and plan of care with attending, Dr. De La Paz. Sepsis Assessment - Evaluation Sepsis screening result: No Definite Risk Hospital Course Summary Disclaimer: The visit summary below is not to be considered part of the above Progress Note. Hospital Course: 07/19/17 Plan Unfortunately, MRI of the right foot does reveal osteomyelitis of the right great toe with complete involvement of the distal phalanx and worsening involvement in the proximal. There is questionable about of dorsal subcutaneous abscess. Will contact Dr Diaz. Will place consultation with Dr Odell for evaluation and recommendations. Patient continues to be on IV vancomycin and Zosyn for antimicrobial coverage. Preliminary blood cultures remain negative. Superficial wound culture reveals gram-positive cocci. Leukocytosis improved, WBC 11.6 today. Will given one time dose of Potassium for oral supplementation given mild hypokalemia Hemoglobin A1c on admission was found to be significantly elevated at 11.5. Currently on metformin 1000 twice a day, Levemir 27 units at at bedtime along with NovoLog 15 units with meals 3 times a day. Continue to monitor blood pressure in light of reported hypotension overnight suspect this may positional. Continues on Lisinopril 10 mg daily. Continue Lovenox subcutaneous daily for DVT prophylaxis 07/20/17 Plan Trista's affect appears to be somewhat flat and he appears to be uncomfortable today although he is not really a complainer so does difficult to evaluate. Nausea seems to be his biggest issue. Discussed with him about using multiple antibiotics to attempt to treat his nausea. He is in agreement to try an intramuscular injection of Phenergan to see if that will be more aggressive treatment towards his nausea and He is in agreement to try this. He also has a scopolamine patch He is status post right great toe amputation done by Dr. Odell this morning. Denies significant pain. He complains of a cough today. Will obtain a Chest X-ray. Continues on chronic 3 liters of oxygen. Continue to monitor blood sugars. Continues on vancomycin and Zosyn for antimicrobial coverage. Will change patient's line to a PICC line today as he will likely need longer-term antibiotic coverage. Would like to speak with Dr. Diaz regarding treatment length recommendations. Continue with Lovenox subcutaneous daily starting tomorrow for DVT prophylaxis Discuss further orders and plan of care with attending, Dr. De La Paz. <Camille De La Paz - Last Filed: 07/20/17 17:34> Objective Vital signs: Temperature 96.5 F L 07/20/17 15:21 Pulse Rate 78 07/20/17 15:41 Respiratory Rate 18 07/20/17 15:21 Blood Pressure 153/90 H 07/20/17 15:21 Pulse Oximetry 99 07/20/17 15:21 Oxygen Delivery Method Nasal Cannula Oxygen Flow Rate 3 Height/Weight/BMI: Weight 121 kg Results - Labs CBC & Chem 7: 07/20/17 04:09 07/20/17 04:10 Assessment and Plan (1) Cellulitis of great toe, right Current visit: Yes Status: Acute (2) Osteomyelitis of toe of right foot Current visit: Yes Status: Acute Resuscitation Status: Full Code Assessment and Plan: I have independently evaluated and examined this patient. I reviewed the chart, the patient's history, and the GUEST SERVICE MANAGER/PA's documented findings as above. We discussed and formulated the assessment and plan as above with additions as below: Trista denies having any pain in his leg or at the site of toe amputation earlier today. He's developed a nonproductive cough in the past 24 hours but dyspnea is unchanged. He is anxious for discharge. The patient was alert when seen and in no distress. Respirations were nonlabored with clear breath sounds although airflow is somewhat diminished throughout. Regular cardiac rhythm, sinus rhythm on telemetry. Bulky dressing on the right foot but no peripheral edema bilateral shins. Wound culture obtained on 07/18 positive for group B strep, MRSA not identified currently. Antibiotic options reviewed with Dr. Diaz-can potentially discharge on oral clindamycin to cover both pathogens identified as an outpatient. His nausea ongoing may benefit from scheduled metoclopramide. Surgical findings reviewed with Dr. Odell. Hospital Course Summary Disclaimer: The visit summary below is not to be considered part of the above Progress Note.
[2017-07-20] MEDS: PROMETHAZINE 25 MG INJECTION IM PRN (14:34)
--- NOTE | 2017-07-20 14:50 | Pharmacy Consult-Antibiotics ---
Pharmacy Consult-Vancomycin - Laboratory Information WBC 11.3 T/MM3 (4.5-11.0) H 07/20/17 04:09 BUN 10.0 MG/DL (9-20) 07/20/17 04:10 Creatinine 1.0 MG/DL (0.8-1.5) D 07/20/17 04:10 Procalcitonin < 0.05 NG/ML 07/18/17 14:22 Vancomycin Trough 23.42 UG/ML (15-20) H* 07/20/17 13:46 - Consult Information VANCOMYCIN CONSULT: Dx: SEPSIS Current Renal Fx: SCr = 1.0mg/dl. Will give Vancomycin 1,750mg IV q12hrs. Will continue to monitor and adjust regimen to maintain therapeutic levels. Thank you.
--- NOTE | 2017-07-20 16:46 | XRay Report ---
Indication: coughing PROCEDURE: XR chest 1V: Encounter: Initial Comparison: None Findings: Right lower lobe atelectasis. Lungs are hypoinflated. No pneumothorax. Heart size is within normal limits. Mediastinal contours and pulmonary vascularity are normal. Impression: Hypoinflation with right lower lobe atelectasis. .
[2017-07-20] MEDS: INSULIN DETEMIR 100unit/ml INJECTION SQ SCH (20:47)
[2017-07-20] MEDS: ATORVASTATIN 10 MG TABLET PO SCH (20:47)
[2017-07-21] MEDS: PIPERACILLIN/TAZOBACTAM 3.375 GM in NS 100 ML IV SCH ×2 (00:14→05:37)
[2017-07-21] MEDS: ONDANSETRON 4 MG/2 ML INJECTION IVP PRN (04:36)
[2017-07-21] MEDS: SALINE FLUSH 10ml SYRINGE IVF PRN (05:45)
[2017-07-21] MEDS: PROMETHAZINE 25 MG INJECTION IM PRN (06:44)
--- NOTE | 2017-07-21 09:23 | Pharmacy Consult- Renal Dosing ---
Pharamcy Consul-Renal Dosing - Laboratory Information 07/19/17 07/20/17 07/21/17 04:01 04:10 07:13 BUN 9.0 10.0 12.0 Creatinine 0.6 L D 1.0 D 1.3 D - Consult Information Patient has had a significant increase in SCr since admission. from 07/18 SCr= 0.4 mg/dL to 07/21 SCr= 1.3 mg/dL. Will hold 07/21 1800 dose of Vancomycin and also adjust Zosyn dose to 2.25 G IV Q6H. Will obtain Vanco level with 8/27 am labs. Pharmacy will monitor and adjust as needed. Thank you, Joann Reddy [facility]
--- NOTE | 2017-07-21 09:59 | Orthopedic Progress Note ---
Date: Subjective/Severity of Illness: denies pain in right foot Orthopedic Objective Vital signs: Temperature 98.2 F 07/21/17 07:37 Pulse Rate 93 07/21/17 07:37 Respiratory Rate 16 07/21/17 07:37 Blood Pressure 145/88 H 07/21/17 07:37 Pulse Oximetry 97 07/21/17 07:37 Oxygen Delivery Method Nasal Cannula Oxygen Flow Rate 3 Height and Weight: Weight 122.2 kg - Constitutional General Appearance: Present: no acute distress, well developed, well nourished - Respiratory Exam Present: other (nasal cannula in place) - Lymphatic Lymphatic: Absent: adenopathy - Wound Management Left Great Toe Comments: Right great toe amputation site well approximated. There is maceration of the inferior skin edge. - Labs Result Diagrams: 07/21/17 04:28 07/21/17 07:13 Abnormal lab results 07/20/17 07/21/17 07/21/17 Range/Units 13:46 04:28 07:13 WBC 12.5 H (4.5-11.0) T/MM3 RBC 4.46 L (4.50-5.90) M/MM3 Hgb 12.0 L (13.5-17.5) GM/DL Hct 36.6 L (41-53) % Plt Count 419 H (130-400) T/MM3 MPV 9.2 L (9.4-12.4) UM3 Neutrophils % (Manual) 79.0 H (33-66) % Lymphocytes % (Manual) 12.0 L (23-45) % Neutrophils # (Manual) 9.9 H (1.8-7.7) T/MM3 Chloride 109 H (98-107) MEQ/L Vancomycin Trough 23.42 H* (15-20) UG/ML H & H 07/19/17 07/20/17 07/21/17 Range/Units 04:01 04:09 04:28 Hgb 11.8 L 11.8 L 12.0 L (13.5-17.5) GM/DL Hct 36.2 L 36.5 L 36.6 L (41-53) % Orthopedic Assessment and Plan (1) Osteomyelitis of toe of right foot Status: Acute Assessment and Plan: will start using silver dressing over the incision to help with the maceration follow up in one week in my clinic when discharged Hospital Course Summary Disclaimer: The visit summary below is not to be considered part of the above Progress Note. Hospital Course: 07/19/17 Plan Unfortunately, MRI of the right foot does reveal osteomyelitis of the right great toe with complete involvement of the distal phalanx and worsening involvement in the proximal. There is questionable about of dorsal subcutaneous abscess. Will contact Dr Diaz. Will place consultation with Dr Odell for evaluation and recommendations. Patient continues to be on IV vancomycin and Zosyn for antimicrobial coverage. Preliminary blood cultures remain negative. Superficial wound culture reveals gram-positive cocci. Leukocytosis improved, WBC 11.6 today. Will given one time dose of Potassium for oral supplementation given mild hypokalemia Hemoglobin A1c on admission was found to be significantly elevated at 11.5. Currently on metformin 1000 twice a day, Levemir 27 units at at bedtime along with NovoLog 15 units with meals 3 times a day. Continue to monitor blood pressure in light of reported hypotension overnight suspect this may positional. Continues on Lisinopril 10 mg daily. Continue Lovenox subcutaneous daily for DVT prophylaxis 07/20/17 Plan Trista's affect appears to be somewhat flat and he appears to be uncomfortable today although he is not really a complainer so does difficult to evaluate. Nausea seems to be his biggest issue. Discussed with him about using multiple antibiotics to attempt to treat his nausea. He is in agreement to try an intramuscular injection of Phenergan to see if that will be more aggressive treatment towards his nausea and He is in agreement to try this. He also has a scopolamine patch He is status post right great toe amputation done by Dr. Odell this morning. Denies significant pain. He complains of a cough today. Will obtain a Chest X-ray. Continues on chronic 3 liters of oxygen. Continue to monitor blood sugars. Continues on vancomycin and Zosyn for antimicrobial coverage. Will change patient's line to a PICC line today as he will likely need longer-term antibiotic coverage. Would like to speak with Dr. Diaz regarding treatment length recommendations. Continue with Lovenox subcutaneous daily starting tomorrow for DVT prophylaxis Discuss further orders and plan of care with attending, Dr. De La Paz.
[2017-07-21] MEDS: INSULIN ASPART 100unit/ml INJECTION SQ SCH ×3 (10:18→18:53)
[2017-07-21] MEDS: ENOXAPARIN 30 MG/0.3 ML INJECTION SQ SCH (10:19)
[2017-07-21] MEDS: METFORMIN 500 MG TABLET PO SCH ×2 (10:20→18:39)
[2017-07-21] MEDS: ASPIRIN *EC* 81 MG TABLET PO SCH (10:20)
[2017-07-21] MEDS: LISINOPRIL 10 MG TABLET PO SCH (10:20)
[2017-07-21] MEDS: PIPERACILLIN/TAZOBACTAM 2.25 GM in NS 100 ML IV SCH ×2 (13:29→20:37)
[2017-07-21 13:40] VITALS: RESP 18
[2017-07-21] MEDS ORDERED: LOPERAMIDE 2 MG CAPSULE PO PRN (16:00)
--- NOTE | 2017-07-21 16:05 | Progress Note ---
<Sammi Celestin - Last Filed: 07/21/17 16:01> Subjective: Trista was seen today in follow up. Reports new onset of diarrhea today. Frequent, liquid stools. No abdominal pain or new fever. Reports stool cultures were sent today and were negative. Denies any other acute concerns. Chart is reviewed for collateral information. Objective Vital signs: Temperature 96.4 F L 07/21/17 13:38 Pulse Rate 81 07/21/17 13:38 Respiratory Rate 18 07/21/17 13:38 Blood Pressure 149/87 H 07/21/17 13:38 Pulse Oximetry 99 07/21/17 13:38 Oxygen Delivery Method Nasal Cannula Oxygen Flow Rate 3.5 Rhythm: Normal Sinus Rhythm Height/Weight/BMI: Weight 122.2 kg - Constitutional Present: no acute distress, obese - Routine HEENT Exam Head: Present: normocephalic, atraumatic Eye: Present: EOMI, PERRL, normal accommodation ENT: Present: mucous membranes dry - Routine Respiratory Exam Present: decreased breath sounds, CTA bilaterally. Absent: dyspnea, rhonchi, wheezes, crackles - Routine Cardiovascular Exam Present: RRR, S1, S2, tachycardia Comments: Tachycardic at rest. - Routine Abdominal Exam Present: soft, normoactive bowel sounds, non tender, distended - Routine Extremities Exam Present: no edema, non tender, full ROM Comments: Dressing right foot. - Routine Musculoskeletal Exam Musculoskeletal: Present: no clubbing or cyanosis, normal strength - Routine Skin Exam Present: intact, dry, warm, wounds (Dressing right foot- c/d/i. ) - Routine Neurological Exam Present: alert, oriented X3, moving all extremities - Routine Psychiatric Exam Present: normal affect, normal thought process, cooperative Results - Labs CBC & Chem 7: 07/21/17 04:28 07/21/17 07:13 Labs: Stool panel negative. Assessment and Plan (1) Cellulitis of great toe, right Current visit: Yes Status: Acute (2) Osteomyelitis of toe of right foot Current visit: Yes Status: Acute DVT Prophylaxis: Lovenox Resuscitation Status: Full Code Assessment and Plan: Impression Osteomyelitis of right great toe; Group B strep/Gm + yong. Uncontrolled diabetes Chronic oxygen dependence, OHS, chronic respiratory failure. Diabetic neuropathy Episodic atrial fibrillation Hypercholesterolemia Hypoventilation syndrome Persistent nausea and vomiting. Acute diarrhea Plan: Continue Zosyn/Vanco for now- potentially change to Clindamycin for dismissal. Ortho following for osteo of toe. Patient is high risk for C.diff- stool panel was negative. I am going to ask the lab to send confirmation to [facility] for C.Diff screen. Add Probiotics BID, PRN immodium. Persistent nausea is concerning- will check GB sono to R/O cholecystitis as a cause of nausea and diarrhea. D/W Dr. De La Paz- add scheduled Reglan. Will need to monitor loose stool. Repeat labs in AM. HR is regular, but tachycardic. Will give IVF to prevent hypovolemia given diarrhea. BG is stable on current insulin. Continue ERIK for HTN and monitor closely. - Time spent with patient 25 - 35 minutes Sepsis Assessment - Evaluation Sepsis screening result: No Definite Risk Hospital Course Summary Disclaimer: The visit summary below is not to be considered part of the above Progress Note. Hospital Course: Impression Osteomyelitis of right great toe; Group B strep/Gm + yong. Uncontrolled diabetes Chronic oxygen dependence, OHS, chronic respiratory failure. Diabetic neuropathy Episodic atrial fibrillation Hypercholesterolemia Hypoventilation syndrome Persistent nausea and vomiting. Acute diarrhea 07/19/17 Plan Unfortunately, MRI of the right foot does reveal osteomyelitis of the right great toe with complete involvement of the distal phalanx and worsening involvement in the proximal. There is questionable about of dorsal subcutaneous abscess. Will contact Dr Diaz. Will place consultation with Dr Odell for evaluation and recommendations. Patient continues to be on IV vancomycin and Zosyn for antimicrobial coverage. Preliminary blood cultures remain negative. Superficial wound culture reveals gram-positive cocci. Leukocytosis improved, WBC 11.6 today. Will given one time dose of Potassium for oral supplementation given mild hypokalemia Hemoglobin A1c on admission was found to be significantly elevated at 11.5. Currently on metformin 1000 twice a day, Levemir 27 units at at bedtime along with NovoLog 15 units with meals 3 times a day. Continue to monitor blood pressure in light of reported hypotension overnight suspect this may positional. Continues on Lisinopril 10 mg daily. Continue Lovenox subcutaneous daily for DVT prophylaxis 07/20/17 Plan Trista's affect appears to be somewhat flat and he appears to be uncomfortable today although he is not really a complainer so does difficult to evaluate. Nausea seems to be his biggest issue. Discussed with him about using multiple antibiotics to attempt to treat his nausea. He is in agreement to try an intramuscular injection of Phenergan to see if that will be more aggressive treatment towards his nausea and He is in agreement to try this. He also has a scopolamine patch He is status post right great toe amputation done by Dr. Odell this morning. Denies significant pain. He complains of a cough today. Will obtain a Chest X-ray. Continues on chronic 3 liters of oxygen. Continue to monitor blood sugars. Continues on vancomycin and Zosyn for antimicrobial coverage. Will change patient's line to a PICC line today as he will likely need longer-term antibiotic coverage. Would like to speak with Dr. Diaz regarding treatment length recommendations. Continue with Lovenox subcutaneous daily starting tomorrow for DVT prophylaxis Discuss further orders and plan of care with attending, Dr. De La Paz. 07/21/17 16:14 07/21/17 16:19 Continue Zosyn/Vanco for now- potentially change to Clindamycin for dismissal. Ortho following for osteo of toe. Patient is high risk for C.diff- stool panel was negative. I am going to ask the lab to send confirmation to [facility] for C.Diff screen. Add Probiotics BID, PRN immodium. Persistent nausea is concerning- will check GB sono to R/O cholecystitis as a cause of nausea and diarrhea. D/W Dr. De La Paz- add scheduled Reglan. Will need to monitor loose stool. Repeat labs in AM. HR is regular, but tachycardic. Will give IVF to prevent hypovolemia given diarrhea. BG is stable on current insulin. Continue ERIK for HTN and monitor closely. <Camille De La Paz - Last Filed: 07/21/17 20:15> Objective Vital signs: Temperature 98.9 F 07/21/17 17:00 Pulse Rate 91 07/21/17 17:00 Respiratory Rate 18 07/21/17 17:00 Blood Pressure 159/96 H 07/21/17 17:00 Pulse Oximetry 95 07/21/17 17:00 Oxygen Delivery Method Nasal Cannula Oxygen Flow Rate 3 Height/Weight/BMI: Weight 122.2 kg Results - Labs CBC & Chem 7: 07/21/17 04:28 07/21/17 07:13 Assessment and Plan (1) Cellulitis of great toe, right Current visit: Yes Status: Acute (2) Osteomyelitis of toe of right foot Current visit: Yes Status: Acute Assessment and Plan: I have independently evaluated and examined this patient. I reviewed the chart, the patient's history, and the WOOD STRIP BLOCK FLOOR INSTALLER/PA's documented findings as above. We discussed and formulated the assessment and plan as above with additions as below: Trista was seen late afternoon at which time he reportedly tolerated some crackers and cheese. The diarrhea didn't seem quite as bad this afternoon is earlier. He continues to report no pain in his leg due to neuropathy. Patient was resting in bed with CPAP on, respirations were nonlabored Breath sounds somewhat diminished throughout Cardiac rhythm regular, abdomen soft/nontender No evidence of C. difficile, antibiotics may be contributing to current GI symptoms-Zosyn discontinued. Vancomycin should cover both staph and strep pending conversion to oral antibiotics with clindamycin. Scheduled metoclopramide added for nausea, when necessary Zofran available. Confirmation of C. difficile at AMS unnecessary, if diarrhea ongoing will run C. difficile toxin a single study-nursing reports stool does not have characteristics of C. difficile colitis. Hospital Course Summary Disclaimer: The visit summary below is not to be considered part of the above Progress Note.
[2017-07-21] MEDS ORDERED: ENOXAPARIN 30 MG/0.3 ML INJECTION SQ SCH (16:12)
[2017-07-21] MEDS: LACTOBACILLUS (15B cfu) CAPSULE PO SCH ×2 (16:22→17:44)
[2017-07-21] MEDS: NS 1,000 ML IV SCH ×2 (16:32→23:28)
[2017-07-21] MEDS: ATORVASTATIN 10 MG TABLET PO SCH (20:11)
[2017-07-21] MEDS ORDERED: CEFTRIAXONE 1 G in NS 100 ML IV SCH (20:15)
[2017-07-21] MEDS: INSULIN DETEMIR 100unit/ml INJECTION SQ SCH (21:32)
[2017-07-22] MEDS: NS 1,000 ML IV SCH (06:26)
[2017-07-22] MEDS ORDERED: ENOXAPARIN 40 MG/0.4 ML INJECTION SQ SCH (09:00)
[2017-07-22] MEDS: INSULIN ASPART 100unit/ml INJECTION SQ SCH ×2 (09:28→12:32)
[2017-07-22] MEDS: LISINOPRIL 10 MG TABLET PO SCH (09:28)
[2017-07-22] MEDS: METFORMIN 500 MG TABLET PO SCH (09:29)
[2017-07-22] MEDS: LACTOBACILLUS (15B cfu) CAPSULE PO SCH (09:29)
[2017-07-22] MEDS: ASPIRIN *EC* 81 MG TABLET PO SCH (09:29)
--- NOTE | 2017-07-22 11:18 | Pharmacy Consult-Antibiotics ---
Pharmacy Consult-Vancomycin - Laboratory Information WBC 11.6 T/MM3 (4.5-11.0) H 07/22/17 04:19 BUN 13.0 MG/DL (9-20) 07/22/17 04:19 Creatinine 1.5 MG/DL (0.8-1.5) D 07/22/17 04:19 Procalcitonin < 0.05 NG/ML 07/18/17 14:22 Vancomycin Trough 23.42 UG/ML (15-20) H* 07/20/17 13:46 - Consult Information VANCOMYCIN CONSULT: Vancomycin Trough = 17.85 mcg/ml. Today's SCr = 1.5 mg/dl. Will give Vancomycin 1,750 mg IV q24hrs. Will continue to monitor and make adjustments accordingly. Thank you.
[2017-07-22] MEDS: POTASSIUM CHLORIDE PREMIX 10 MEQ/100 ML BAG IV SCH ×5 (11:55→15:19)
[2017-07-22 12:27] VITALS: BP 144/84; PULSE 89; TEMP 97.3; O2SAT 97
--- NOTE | 2017-07-22 12:42 | Discharge Instructions ---
Discharge Plan - Med Rec/Dispo Referrals/Follow Up: Adria Odell MD [Physician] - 1 Week Arleth Diaz MD [Physician] - 1 Week Mikaela Shaikh APRN [Family Provider] - 2 Weeks Danielle Instructions: Wound Infection (GEN) Additional Instructions: Call Dr. Odell's office to schedule a follow up appointment in 1 week. Call Wound Clinic to schedule a follow -up with Dr. Arleth Diaz (Infectious Disease doctor) in 1-2 weeks Call Mikaela Shaikh's office to schedule follow-up appointment in regard to chronic health issues and follow-up on labs in 2 weeks Prescriptions: New Loperamide [Imodium] 2 mg PO PRN PRN #15 cap PRN Reason: Diarrhea Metoclopramide [Reglan] 10 mg PO ACHS #20 tab Acidoph/L.bulg/Bif.b/S.thermop [Bacid Caplet] 2 cap PO BIDWM #60 tab Clindamycin [Cleocin] 300 mg PO QID #56 cap Continue Metformin HCl 1,000 mg PO BIDWM #0 tab Acetaminophen [Tylenol] 325 - 650 mg PO Q5H PRN #60 tab PRN Reason: DISCOMFORT Lisinopril 10 mg PO DAILY Levemir 27 units SUB-Q HS Insulin Aspart [Novolog Flexpen] 15 unit SQ TIDWM Aspirin [Wells Aspirin] 81 mg PO DAILY Atorvastatin [Lipitor] 1 tab PO HS Discontinued levoFLOXacin [Levofloxacin] 750 mg PO DAILY Discharge Instructions/Outpatient Orders: Final Provider Discharge Instructions Location: Determined By Patient - Disposition 01 Discharged Home, Self-Care
--- NOTE | 2017-07-22 12:57 | Discharge Summary ---
<Belinda Amaya - Last Filed: 07/22/17 12:54> Discharge Information Date of admission: 07/18/17 17:07 Anticipated date of discharge: 07/22/17 Attending Physician: Camille De La Paz MD Primary care physician: Mikaela Shaikh APRN Consults: 07/18/17 Pharmacy Consult [CONS] Routine Pharmacy Consult: Vancomycin 07/19/17 11:47 Physician Consult [CONS] Routine Consulting Provider: Adria Odell Reason For Exam: osteo to right great toe Ordering Provider has Notified [employer] Winder: Yes Comment: jorge notified - Discharge Diagnosis Discharge Diagnosis: Status post amputation right great toe secondary to osteomyelitis/abscess related to nonhealing diabetic foot wound - Procedures Procedures: Right great toe amputation - Laboratory Labs: 07/22/17 04:19 07/22/17 04:19 - Microbiology Wound cultures grew out strep agalactiae - Group B and staph aureus - MRSA Neg blood cultures - Radiology Radiology: Chest x-ray 07/20/17 Impression: Hypoinflation with right lower lobe atelectasis. MRI 07/18/17- R foot Impression: Continued osteomyelitis of the great toe with complete involvement of the distal phalanx and worsening involvement of the proximal phalanx. Dorsal subcutaneous abscess centered around the interphalangeal joint of the toe measuring 2.6 x 2 cm. - Pathology none History of Present Illness HPI: HPI on admission on 07/18/17 Patient is 46-year-old male who presents to the emergency room with worsening of his diabetic foot wound. He has been seeing Dr. Harpal Eldridge weekly in the wound clinic. He states he saw her 2 days ago and she started him on Levaquin due to concern for infection. Culture was taken at the previous visit and results are pending. He had a previous culture in April which grew out staph aureus-MRSA and group B strep. He states the wound has continued to worsen with a new blood blister and pus drainage noted this morning. He has had some pain ( usually doesn't have much pain/sensation d/t diabetic neuropathy) and reports chills. He reported this to the wound clinic and they recommended he go to the emergency room today. His white count in ER was 15.1, (up from 11.7 two days ago ) lactate 1.2, procalcitonin< 0.05. He already has an MRI scheduled for today to evaluate the right great toe due to the nonhealing wound. Patient was seen in his hospital room with his son present. He was resting comfortably. He states overall he is feeling fine, but knew he needed to come in because of his worsening toe symptoms. His vital signs in the emergency room were all stable. He is afebrile. He reports his last A1c in February was 8. In addition to routine visits to wound clinic, patient has seen Dr. Odell for this wound in April 2016. Objective Vital signs: Temperature 97.3 F 07/22/17 12:26 Pulse Rate 89 07/22/17 12:26 Respiratory Rate 18 07/22/17 12:26 Blood Pressure 144/84 H 07/22/17 12:26 Pulse Oximetry 97 07/22/17 12:26 on 3L O2 - NC Height/Weight/BMI: Weight 123.7 kg - Constitutional Present: no acute distress, well nourished, well developed - Routine HEENT Exam Head: Present: normocephalic, atraumatic ENT: Present: mucous membranes moist - Routine Respiratory Exam Present: CTA bilaterally, distant breath sounds, diminished air movement. Absent: accessory muscle use, respiratory distress, wheezes - Routine Cardiovascular Exam Present: RRR, S1, S2. Absent: murmur - Routine Abdominal Exam Present: soft, normoactive bowel sounds, non distended. Absent: tenderness - Routine Extremities Exam Present: normal capillary refill Comments: Dressing intact on the right foot. 1+ edema right lower leg and foot. Trace swelling left lower extremity. Chronic diabetic skin changes. - Routine Skin Exam Present: dry, warm - Routine Neurological Exam Present: alert, oriented X3 - Routine Lymphatic Exam Lymphatic: Absent: adenopathy - Routine Psychiatric Exam Present: normal affect, normal thought process Hospital Course This is a general summary of the patient's hospital course. For more details refer to the complete medical record. Hospital course: Impression Osteomyelitis of right great toe; Group B strep/staph aureus (MRSA)-status post right great toe amputation Uncontrolled diabetes Chronic oxygen dependence, OHS, chronic respiratory failure. Diabetic neuropathy Episodic atrial fibrillation Hypercholesterolemia Hypoventilation syndrome Acute diarrhea -likely related to antibiotics- improving Hospital summary: Patient was admitted on 07/18/17 to the emergency room due to fever and worsening infection of his nonhealing right great toe diabetic foot ulcer. MRI was performed showing osteomyelitis. He was started on Zosyn and vancomycin. He was taken to surgery for right great toe amputation by Dr. Odell. Cultures grew out group B strep and staph aureus (MRSA). He developed some nausea and diarrhea during his stay. He tested negative for C. difficile. Metoclopramide was started for his nausea and vomiting and probiotics were started for his diarrhea. At time of dismissal he reports the nausea and vomiting has resolved. He'll be dismissed home on clindamycin 300 mg 4 times a day for 14 days, probiotics for the diarrhea, metoclopramide routinely for the next 4-5 days and then when necessary and his usual home medicines. Patient to see Dr. Diaz in the wound clinic to determine if antibiotic coverage needs to be extended beyond that time. He'll follow up with Dr. Odell in 1 week. He is to see his regular PCP, Mikaela Shaikh in approximately 2 weeks to follow-up on his postop anemia and hypokalemia and diabetes management. With his A1c being 11.5, he will need tighter blood sugar control. He will use Aquacel silver dressings and change this as needed when soaked through. When drainage ceases, he can change this every 3 days. He will be following up in wound clinic. He may walk as he desires as long as he is in his postop boot. Review of labs during hospital stay: His white count dropped from 15.1-11.6. His hemoglobin dropped from 13.0-11.0% (as would be expected given blood loss from surgery). His potassium was 4.0 on admission and 3.5 on dismissal. Calcium was normal on admission and on dismissal was low at 8.1. Creatinine was 0.4 on admission and 1.5 on dismissal. TSH-normal at 0.94. A1c elevated at 11.5. 07/19/17 Unfortunately, MRI of the right foot does reveal osteomyelitis of the right great toe with complete involvement of the distal phalanx and worsening involvement in the proximal. There is questionable about of dorsal subcutaneous abscess. Will contact Dr Diaz. Will place consultation with Dr Odell for evaluation and recommendations. Patient continues to be on IV vancomycin and Zosyn for antimicrobial coverage. Preliminary blood cultures remain negative. Superficial wound culture reveals gram-positive cocci. Leukocytosis improved, WBC 11.6 today. Will given one time dose of Potassium for oral supplementation given mild hypokalemia Hemoglobin A1c on admission was found to be significantly elevated at 11.5. Currently on metformin 1000 twice a day, Levemir 27 units at at bedtime along with NovoLog 15 units with meals 3 times a day. Continue to monitor blood pressure in light of reported hypotension overnight suspect this may positional. Continues on Lisinopril 10 mg daily. Continue Lovenox subcutaneous daily for DVT prophylaxis 07/20/17 Trista's affect appears to be somewhat flat and he appears to be uncomfortable today although he is not really a complainer so does difficult to evaluate. Nausea seems to be his biggest issue. Discussed with him about using multiple antibiotics to attempt to treat his nausea. He is in agreement to try an intramuscular injection of Phenergan to see if that will be more aggressive treatment towards his nausea and He is in agreement to try this. He also has a scopolamine patch He is status post right great toe amputation done by Dr. Odell this morning. Denies significant pain. He complains of a cough today. Will obtain a Chest X-ray. Continues on chronic 3 liters of oxygen. Continue to monitor blood sugars. Continues on vancomycin and Zosyn for antimicrobial coverage. Will change patient's line to a PICC line today as he will likely need longer-term antibiotic coverage. Would like to speak with Dr. Diaz regarding treatment length recommendations. Continue with Lovenox subcutaneous daily starting tomorrow for DVT prophylaxis Discuss further orders and plan of care with attending, Dr. De La Paz. 07/21/17 16:14 07/21/17 Continue Zosyn/Vanco for now- potentially change to Clindamycin for dismissal. Ortho following for osteo of toe. Patient is high risk for C.diff- stool panel was negative. Add Probiotics BID, PRN immodium. add scheduled Reglan. Repeat labs in AM. HR is regular, but tachycardic. 07/22/17 Dismissed today. See above. Time spent with patient: greater than 35 minutes Discharge Plan - Med Rec/Dispo Referrals/Follow Up: Arleth Diaz MD [Physician] - 1 Week Adria Odell MD [Physician] - 1 Week Mikaela Shaikh APRN [Family Provider] - 2 Weeks Danielle Instructions: Wound Infection (GEN) Additional Instructions: Call Dr. Odell's office to schedule a follow up appointment in 1 week. Call Wound Clinic to schedule a follow -up with Dr. Arleth Diaz (Infectious Disease doctor) in 1-2 weeks Call Mikaela Shaikh's office to schedule follow-up appointment in regard to chronic health issues and follow-up on labs in 2 weeks Prescriptions: New Loperamide [Imodium] 2 mg PO PRN PRN #15 cap PRN Reason: Diarrhea Metoclopramide [Reglan] 10 mg PO ACHS #20 tab Acidoph/L.bulg/Bif.b/S.thermop [Bacid Caplet] 2 cap PO BIDWM #60 tab Clindamycin [Cleocin] 300 mg PO QID #56 cap Continue Metformin HCl 1,000 mg PO BIDWM #0 tab Acetaminophen [Tylenol] 325 - 650 mg PO Q5H PRN #60 tab PRN Reason: DISCOMFORT Lisinopril 10 mg PO DAILY Levemir 27 units SUB-Q HS Insulin Aspart [Novolog Flexpen] 15 unit SQ TIDWM Aspirin [[place] Aspirin] 81 mg PO DAILY Atorvastatin [Lipitor] 1 tab PO HS Discontinued levoFLOXacin [Levofloxacin] 750 mg PO DAILY Discharge Instructions/Outpatient Orders: Final Provider Discharge Instructions Location: Determined By Patient - Disposition 01 Discharged Home, Self-Care <Camille De La Paz - Last Filed: 07/22/17 18:48> Discharge Information Date of admission: 07/18/17 17:07 Attending Physician: Camille De La Paz MD Primary care physician: Mikaela Shaikh, JUANITA Consults: 07/18/17 Pharmacy Consult [CONS] Routine Pharmacy Consult: Vancomycin 07/19/17 11:47 Physician Consult [CONS] Routine Consulting Provider: Adria Odell Reason For Exam: osteo to right great toe Ordering Provider has Notified [employer] Winder: Yes Comment: jorge notified - Laboratory Labs: 07/22/17 04:19 07/22/17 04:19 Objective Vital signs: Temperature 97.3 F 07/22/17 12:26 Pulse Rate 89 07/22/17 12:26 Respiratory Rate 18 07/22/17 12:26 Blood Pressure 144/84 H 07/22/17 12:26 Pulse Oximetry 97 07/22/17 12:26 Oxygen Delivery Method Nasal Cannula Oxygen Flow Rate 3 Height/Weight/BMI: Weight 123.7 kg Hospital Course This is a general summary of the patient's hospital course. For more details refer to the complete medical record. Hospital course: I have independently evaluated and examined this patient. I reviewed the chart, the patient's history, and the [employer]ER/PA's documented findings as above. We discussed and formulated the assessment and plan as above with additions as below: Trista reports feeling significantly improved today. He's had no diarrhea or nausea and has tolerated solid food without difficulty. A1c was 11.5 a couple of day ago-need to modify diabetes regimen and diet to permit better control of diabetes and minimize future complications was discussed with Trista at some length. He is referred back to his primary care provider for further management. I did recommend that he monitor blood sugars fasting and 2 hours after meals nearly daily prior to his next office visit to facilitate insulin modifications. Patient is alert, respirations are nonlabored with good airflow and clear breath sounds. Abdomen is benign. There is trace edema of the right pierson- significantly improved from admission. Continue clindamycin for 2 weeks to cover both staph and strep; follow-up in wound care clinic and with Dr. Odell as noted. Continue metoclopramide for nausea for short-term and then when necessary.
[2017-07-22] MEDS: CLINDAMYCIN 300 MG CAPSULE PO SCH ×2 (15:09→15:17)
[2017-07-23] MEDS ORDERED: SCOPOLAMINE PATCH REMOVAL TD ONE (08:12)
== END 2017-07-22 16:40 | disposition home or self-care (01) | DRG 504 ==
LOC: MED 12:49 → ED 12:49 → MED 15:40
PROVIDERS: ADMIT Internal Medicine; ATTEND Internal Medicine